=== PATIENT | female | born 1985 | race African-American/Black ===

== ENCOUNTER 2017-08-18 14:40 | Inpatient (IN) | payer OTHER ==
[2017-08-18] MEDS ORDERED: LIDOCAINE 1% (MPF) 30 ML INJ INJ (16:30)
[2017-08-18] MEDS ORDERED: MISOPROSTOL 200 MCG TAB PR (16:30)
[2017-08-18] MEDS ORDERED: BUTORPHANOL 2 MG INJ IV (16:30)
[2017-08-18] MEDS ORDERED: METHYLERGONOVINE 0.2 MG INJ IM (16:30)
[2017-08-18] MEDS ORDERED: OXYTOCIN 30 UNITS/LR 500 ML IV (16:30)
[2017-08-18] MEDS ORDERED: IBUPROFEN 600 MG TAB PO (16:30)
[2017-08-18] MEDS ORDERED: CARBOPROST 250 MCG INJ IM (16:30)
[2017-08-18 16:32] LABS: ADD MAN DIFF? NO
[2017-08-18 16:37] LABS: WHITE BLOOD COUNT 6.9 10^3/ul (4.8-10.8)
[2017-08-18 16:37] LABS: BASOPHILS % 0.3 % (0.0-2.0); EOSINOPHILS # 0.1 10^3/ul (0.0-0.5); EOSINOPHILS % 1.3 % (0.0-7.0); HEMATOCRIT 29.5 % (37.0-47.0); HEMOGLOBIN 9.9 g/dl (12.0-16.0); LYMPHOCYTES # 1.7 10^3/ul (0.8-2.9); MEAN CORPUSCULAR HGB CONC 33.6 g/dl (32.0-37.0); MEAN CORPUSCULAR VOLUME 83.3 fl (82.0-101.0); MEAN PLATELET VOLUME 9.5 fl (7.4-10.4); MONOCYTE # 0.5 10^3/ul (0.3-0.9); MONOCYTES % 7.8 % (0.0-11.0); NEUTROPHIL # 4.6 10^3/ul (1.6-7.5); NEUTROPHILS % 65.9 % (39.0-77.0); PLATELET COUNT 196 10^3/UL (140-415); RED BLOOD COUNT 3.54 10^6/ul (4.20-5.40); RED CELL DISTRIBUTION WIDTH 14.4 % (11.5-14.5)
[2017-08-18] MEDS: LACTATED RINGER'S 1,000 ML IV* ×2 (16:52→21:17)
[2017-08-18 16:54] LABS: ADD UMIC YES; INR 0.86; PROTIME 11.8 Sec (11.9-14.9); PT RATIO 0.9; UR ASCORBIC ACID NEGATIVE (NEGATIVE); UR BACTERIA FEW /HPF (NONE SEEN); UR BILIRUBIN (Dip) NEGATIVE (NEGATIVE); UR BLOOD (Dip) 1+ mg/dL (NEGATIVE); UR CLARITY CLOUDY (CLEAR); UR COLOR YELLOW (YELLOW); UR GLUCOSE (Dip) NEGATIVE (NEGATIVE); UR KETONES (Dip) NEGATIVE (NEGATIVE); UR LEUKOCYTE ESTERASE (Dip) 3+ Leu/ul (NEGATIVE); UR NITRITE (Dip) NEGATIVE (NEGATIVE); UR RBC 49 /HPF (0-5); UR SPECIFIC GRAVITY (Dip) 1.006 (1.003-1.030); UR SQUAMOUS EPITHELIAL CELL FEW /HPF (FEW); UR TOTAL PROTEIN (Dip) NEGATIVE (NEGATIVE); UR UROBILINOGEN (Dip) NEGATIVE (NEGATIVE); UR WBC 28 /HPF (0-5)
[2017-08-18 16:55] LABS: PARTIAL THROMBOPLASTIN TIME 27.5 Sec (25.0-35.0)
[2017-08-18 16:59] LABS: ALANINE AMINOTRANSFERASE 50 IU/L (13-69); ALBUMIN 3.4 g/dl (3.3-4.9); ALBUMIN/GLOBULIN RATIO 0.97; ALKALINE PHOSPHATASE 214 IU/L (42-121); ANION GAP 15 (8-16); ASPARTATE AMINO TRANSFERASE 26 IU/L (15-46); BILIRUBIN,INDIRECT 0.3 mg/dl (0-1.1); BILIRUBIN,TOTAL 0.3 mg/dl (0.2-1.3); BLOOD UREA NITROGEN 9 mg/dl (7-20); CALCIUM 9.3 mg/dl (8.4-10.2); CARBON DIOXIDE 21 mmol/L (21-31); CHLORIDE 108 mmol/L (97-110); CREATININE 0.69 mg/dl (0.44-1.00); GLUCOSE 95 mg/dl (70-220); SODIUM 140 mmol/L (135-144); TOTAL PROTEIN 6.9 g/dl (6.1-8.1); URIC ACID 4.8 mg/dl (3.1-7.9)
[2017-08-18] MEDS ORDERED: MISOPROSTOL 25 MCG CAPSULE PO (17:00)
[2017-08-18] MEDS ORDERED: MISOPROSTOL 100 MCG TAB PO (17:00)
[2017-08-18] MEDS: AMPICILLIN 2 GM/NS (PMX) 100 ML IV (17:23)
[2017-08-18 18:05] LABS: HEPATITIS B SURFACE ANTIGEN NEGATIVE (NEGATIVE)
[2017-08-18] MEDS: OXYTOCIN 30 UNITS/LR 500 ML IV (19:55)
[2017-08-18 20:12] LABS: AMPHETAMINE/METHAMPHETAMINE NEGATIVE (NEGATIVE); BARBITURATES NEGATIVE (NEGATIVE); BENZODIAZEPINES NEGATIVE (NEGATIVE); CANNABINOIDS NEGATIVE (NEGATIVE); COCAINE NEGATIVE (NEGATIVE); OPIATES NEGATIVE (NEGATIVE)
[2017-08-18] MEDS: AMPICILLIN 1 GM/NS (PMX) 50 ML IV (21:17)
[2017-08-19] MEDS: AMPICILLIN 1 GM/NS (PMX) 50 ML IV (00:30)
[2017-08-19] MEDS: OXYTOCIN 30 UNITS/LR 500 ML IV ×2 (00:31→01:34)
[2017-08-19] MEDS ORDERED: LIDOCAINE 1% (MPF) 30 ML INJ (00:33)
[2017-08-19] MEDS: AL HYDROX/MG HYDROX/SIMETH 30 ML CUP PO (01:20)
[2017-08-19] MEDS: IBUPROFEN 800 MG TAB PO (01:20)
[2017-08-19] MEDS ORDERED: DIBUCAINE 1% 30 GM OINT PR (02:30)
[2017-08-19] MEDS ORDERED: DIPHENHYDRAMINE 50 MG INJ IV (02:30)
[2017-08-19] MEDS ORDERED: ACETAMINOPHEN 325 MG TAB PO (02:30)
[2017-08-19] MEDS ORDERED: ONDANSETRON 4 MG INJ IV (02:30)
[2017-08-19] MEDS ORDERED: MISOPROSTOL 200 MCG TAB PR (02:30)
[2017-08-19] MEDS ORDERED: METHYLERGONOVINE 0.2 MG INJ IM (02:30)
[2017-08-19] MEDS ORDERED: CARBOPROST 250 MCG INJ IM (02:30)
[2017-08-19] MEDS ORDERED: OXYCODONE/ASPIRIN (4.88/325) TAB PO (02:30)
[2017-08-19] MEDS ORDERED: ZOLPIDEM 5 MG TAB PO (02:30)
[2017-08-19] MEDS ORDERED: OXYTOCIN 30 UNITS/LR 500 ML IV (02:30)
[2017-08-19] MEDS: BENZOCAINE 20% 56 ML SPRAY TOP ×2 (03:18→23:34)
[2017-08-19] MEDS: LANOLIN 7 GM TUBE TOP (03:19)
[2017-08-19] MEDS: WITCH HAZEL/GLYCERIN PAD PR (03:19)
[2017-08-19] MEDS: IBUPROFEN 600 MG TAB PO ×4 (08:55→23:34)
[2017-08-19] MEDS: LACTATED RINGER'S 1,000 ML IV* ×3 (08:55→18:06)
[2017-08-19] MEDS: SENNA/DOCUSATE NA (8.6MG/50MG) TAB PO (14:58)
[2017-08-19 15:07] LABS: RAPID PLASMA REAGIN NONREACTIVE (NR)
[2017-08-20] MEDS: HYDROCORTISONE 1% 28.35 GM OINT TOP (02:54)
[2017-08-20] MEDS: IBUPROFEN 600 MG TAB PO ×4 (05:23→23:40)
[2017-08-20 09:11] LABS: ADD MAN DIFF? NO
[2017-08-20 09:21] LABS: BASOPHILS % 0.5 % (0.0-2.0); EOSINOPHILS # 0.2 10^3/ul (0.0-0.5); EOSINOPHILS % 1.8 % (0.0-7.0); HEMATOCRIT 29.3 % (37.0-47.0); HEMOGLOBIN 9.8 g/dl (12.0-16.0); LYMPHOCYTES # 2.5 10^3/ul (0.8-2.9); LYMPHOCYTES % 29.4 % (15.0-51.0); MEAN CORPUSCULAR HEMOGLOBIN 28.2 pg (29.0-33.0); MEAN CORPUSCULAR HGB CONC 33.4 g/dl (32.0-37.0); MEAN CORPUSCULAR VOLUME 84.4 fl (82.0-101.0); MEAN PLATELET VOLUME 10.4 fl (7.4-10.4); MONOCYTE # 0.5 10^3/ul (0.3-0.9); NEUTROPHIL # 5.1 10^3/ul (1.6-7.5); NEUTROPHILS % 61.3 % (39.0-77.0); PLATELET COUNT 196 10^3/UL (140-415); RED BLOOD COUNT 3.47 10^6/ul (4.20-5.40); RED CELL DISTRIBUTION WIDTH 14.7 % (11.5-14.5)
[2017-08-20 09:21] LABS: WHITE BLOOD COUNT 8.3 10^3/ul (4.8-10.8)
[2017-08-20] MEDS: SENNA/DOCUSATE NA (8.6MG/50MG) TAB PO (09:25)
[2017-08-21] MEDS: IBUPROFEN 600 MG TAB PO ×2 (05:44→13:06)
[2017-08-21] MEDS: MEASLES,MUMPS,RUBELLA VACCINE INJ SC* (09:00)
[2017-08-21] MEDS: LANOLIN 7 GM TUBE TOP (09:25)
[2017-08-21] MEDS: DIPHTH/TET/ACEL PERTUSS (ADULT) 0.5 ML VIAL IM* (11:54)
== END 2017-08-21 13:55 | disposition home or self-care (01) | DRG 775 ==
LOC: OBT 14:40 → L-D 08-19 00:28 → PP1 08-19 02:31 → L-D 14:43 → OBT 16:00 → L-D 16:00
PROC: 10E0XZZ Delivery of Products of Conception, External Approach (ICD-10-PCS; principal; 2017-08-20)
PROC: 3E033VJ Introduction of Other Hormone into Peripheral Vein, Percutaneous Approach (ICD-10-PCS; 2017-08-20)
PROC: 0HQ9XZZ Repair Perineum Skin, External Approach (ICD-10-PCS; 2017-08-20)
DX: O13.4 Gestational [pregnancy-induced] hypertension without significant proteinuria, complicating childbirth (principal); O70.0 First degree perineal laceration during delivery; Z3A.38 38 weeks gestation of pregnancy; Z37.0 Single live birth
CPT/HCPCS: 76815; 76818; 80053; 80307; 81001; 84560; 85025; 85384; 85610; 85730; 86592; 86900; 86901; 87086; 87340; 90715